=== PATIENT | female | born 1995 | race African-American/Black ===

== ENCOUNTER 2016-08-02 21:22 | Emergency (ER) | payer SELFPAY ==
[~2016-08-02 21:22] MED LIST: CYCL10TA2 PO; NAPR500T8 PO
[2016-08-02 21:33] VITALS: BP 128/84
[2016-08-02] MEDS ORDERED: ACET325T9 PO (22:23)
[2016-08-02] MEDS ORDERED: IBUP200T77 PO (22:23)
--- NOTE | 2016-08-02 22:23 | PHYS DOC ---
Past Medical History Past Medical History: No Pertinent History Past Surgical History: No Surgical History Alcohol Use: None Drug Use: None Adult General Chief Complaint Chief Complaint: Congestion HPI HPI 21-year-old female presenting to the emergency department with primarily headache. She does have a history of headaches and this headache is similar to previous. It was not sudden in onset. She describes it as a tight sensation across the forehead the wraps around. She denies any neck stiffness vision changes weakness or numbness. She denies fevers or chills. Review of systems is negative for abdominal pain. She does endorse is sharp chest pain that is been present for 4-5 days that is intermittent mild and without alleviating factors. Negative for meningismus. All other review of systems is negative unless otherwise noted in history of present illness. Review of Systems Review of Systems SEE ABOVE. Allergies Allergies Allergies Coded Allergies Type Severity Reaction Last Updated Verified No Known Drug Allergies 10/07/15 No Physical Exam Physical Exam Constitutional: Well developed, well nourished, no acute distress, non-toxic appearance. [] HENT: Normocephalic, atraumatic, bilateral external ears normal, oropharynx moist, no oral exudates, nose normal. Negative Kernig sign. Negative Brudzinski sign. Eyes: PERRLA, EOMI, conjunctiva normal, no discharge. [] Neck: Normal range of motion, no tenderness, supple, no stridor. [] Cardiovascular:Heart rate regular rhythm, no murmur [] Lungs & Thorax: Bilateral breath sounds clear to auscultation [] Abdomen: Bowel sounds normal, soft, no tenderness, no masses, no pulsatile masses. [] Skin: Warm, dry, no erythema, no rash. [] Back: No tenderness, no CVA tenderness. [] Extremities: No tenderness, no cyanosis, no clubbing, ROM intact, no edema. [] Neurologic: Alert and oriented X 3, normal motor function, normal sensory function, no focal deficits noted. [] Psychologic: Affect normal, judgement normal, mood normal. [] Current Patient Data Vital Signs Vital Signs Date Time Temp Pulse Resp B/P Pulse Ox O2 Delivery O2 Flow Rate FiO2 08/02/16 21:33 98.6 89 16 99 Room Air 98.[address] segments congruent. Sinus rhythm. Radiology/Procedures Radiology/Procedures []Chest x-ray reviewed by myself shows no obvious infiltrate or pneumothorax present. No obvious acute cardiopulmonary process present. Course & Med Decision Making Course & Med Decision Making Pertinent Labs and Imaging studies reviewed. (See chart for details) [] 21-year-old female presenting to the emergency department today with headache. Vital signs unremarkable. Physical exam shows no evidence of meningeal signs. Patient is well-appearing in the examination room and afebrile. I provided the patient with ibuprofen and acetaminophen for pain control the patient is to follow-up with her primary care physician over the next 2-3 days for her symptoms. Dragon Disclaimer Dragon Disclaimer This electronic medical record was generated, in whole or in part, using a voice recognition dictation system. Departure Departure Impression: Primary Impression: Headache Disposition: HOME, SELF-CARE Condition: STABLE Referrals: NO PCP (PCP) PRITI GONZALEZ MD Patient Instructions: General Headache Without Cause Additional Instructions: Thank you for allowing us to participate in your care today. Followup with your primary care physician in 3 days if your symptoms do not improve. If you do not have a primary care provider you can ask for a list of our primary care providers. Return to the emergency department you have any new or concerning findings. This should be evaluated by the primary care physician and any necessary consulting services for continued management within a few days after discharge. Return to emergency room if you have any new or concerning symptoms including but not limited to fever, chills, nausea, vomiting, intractable pain, any new rashes, chest pain, shortness of air, uncontrolled bleeding, difficulty breathing, and/or vision loss. Scripts Ibuprofen 200 Mg [id number] Mg PO PRN Q6HRS PRN PAIN #30 TAB Prov:ELIUD KHAN MD 08/02/16 Acetaminophen (Tylenol)325 Mg [id number] Mg PO PRN Q8HRS PRN PAIN #20 Prov:ELIUD KHAN MD 08/02/16 Problem Qualifiers Primary Impression: Headache Headache type: unspecified Headache chronicity pattern: unspecified pattern Intractability: not intractable Qualified Code: R51 - Headache ELIUD KHAN MD Aug 02, 2016 22:23
--- NOTE | 2016-08-03 06:39 | EKG ---
[facility] [address] [place] [address] Test Date: 2016-08-02 Test Time: 21:50:45 Pat Name: KELSEY BARRAGAN Department: Room: Gender: F Site Superintendent: : 1995 Requested By: ELIUD KHAN Order Number: [id number] Reading MD: Wendy Stoner Measurements Intervals [place] Rate: 79 P: DE: QRS: 74 QRSD: 70 T: 46 QT: 332 QTc: 382 Interpretive Statements SINUS RHYTHM, NORMAL ECG RI6.01 No previous ECG available for comparison Electronically Signed On 08-05-2016 17:12:42 CDT by Wendy Stoner
--- NOTE | 2016-08-03 07:41 | RAD ---
Indication chest pain. Chronic. PA and lateral views of the chest were obtained. No prior imaging is available. The heart and pulmonary vessels appear normal. The lungs are clear. Moderate scoliosis is noted. IMPRESSION: No acute or focal process seen in the chest. Moderate scoliosis
== END 2016-08-02 22:40 | disposition home or self-care (01) ==
LOC: ER 21:22
DX: R51 Headache (principal); R07.89 Other chest pain
CPT/HCPCS: 71020; 93005; 99284-25

== ENCOUNTER 2017-01-08 10:42 | Emergency (ER) | payer SELFPAY ==
[~2017-01-08] VITALS: Ht 149.9 cm; Wt 59.4 kg
[~2017-01-08 10:42] MED LIST changes: +ACET325T9 PO; +IBUP200T77 PO
--- NOTE | 2017-01-08 11:17 | PHYS DOC ---
Past Medical History Past Medical History: No Pertinent History Past Surgical History: No Surgical History Alcohol Use: None Additional Information: last drank alcohol Saturday Drug Use: None Adult General Chief Complaint Chief Complaint: ABDOMINAL PAIN HPI HPI Patient is a 21 year old female presents the ED complaining of abdominal pain 6 days. States the pain started last Saturday. States the abdominal pain has continued, intermittent, cramping, rates 5 out of 10. Associated symptoms include diarrhea. Denies blood in stool, chest pain, shortness of breath, fever , dizziness, weakness, nausea/vomiting, headache or syncope. Review of Systems Review of Systems Constitutional: Denies fever or chills [] Eyes: Denies change in visual acuity, redness, or eye pain [] HENT: Denies nasal congestion or sore throat [] Respiratory: Denies cough or shortness of breath [] Cardiovascular: No additional information not addressed in HPI [] GI: Complains lanes of abdominal pain and diarrhea. Denies nausea, vomiting, bloody stools. [] : Denies dysuria or hematuria [] Musculoskeletal: Denies back pain or joint pain [] Integument: Denies rash or skin lesions [] Neurologic: Denies headache, focal weakness or sensory changes [] Endocrine: Denies polyuria or polydipsia [] Allergies Allergies Allergies Coded Allergies Type Severity Reaction Last Updated Verified No Known Drug Allergies 10/07/15 No Physical Exam Physical Exam Constitutional: Well developed, well nourished, no acute distress, non-toxic appearance. [] HENT: Normocephalic, atraumatic, bilateral external ears normal, oropharynx moist, no oral exudates, nose normal. [] Eyes: PERRLA, EOMI, conjunctiva normal, no discharge. [] Neck: Normal range of motion, no tenderness, supple, no stridor. [] Cardiovascular:Heart rate regular rhythm, no murmur [] Lungs & Thorax: Bilateral breath sounds clear to auscultation [] Abdomen: Bowel sounds normal, soft, no tenderness, no masses, no pulsatile masses. [] Skin: Warm, dry, no erythema, no rash. [] Back: No tenderness, no CVA tenderness. [] Extremities: No tenderness, no cyanosis, no clubbing, ROM intact, no edema. [] Neurologic: Alert and oriented X 3, normal motor function, normal sensory function, no focal deficits noted. [] Psychologic: Affect normal, judgement normal, mood normal. [] Current Patient Data Vital Signs Vital Signs Date Time Temp Pulse Resp B/P (MAP) Pulse Ox O2 Delivery O2 Flow Rate FiO2 01/08/17 12:45 82 16 122/98 (106) 100 Room Air 01/08/17 10:51 97.8 97.8 Lab Values Laboratory Tests Test 01/08/17 10:45 01/08/17 11:09 01/08/17 11:40 Urine Collection Type Unknown Urine Color Yellow Urine Clarity Clear Urine pH 7.0 Urine Specific [place] 1.025 Urine Protein Negative mg/dL (NEG-TRACE) Urine Glucose (UA) Negative mg/dL (NEG) Urine Ketones (Stick) Negative mg/dL (NEG) Urine Blood Negative (NEG) Urine Nitrite Negative (NEG) Urine Bilirubin Negative (NEG) Urine Urobilinogen Dipstick 1.0 mg/dL (0.2 mg/dL) Urine Leukocyte Esterase Negative (NEG) Urine RBC 0 /HPF (0-2) Urine WBC 0 /HPF (0-4) Urine Bacteria 0 /HPF (0-FEW) POC Urine HCG, Qualitative Hcg negative (Negative) White Blood Count 5.5 x10^3/uL (4.0-11.0) Red Blood Count 4.51 x10^6/uL (3.50-5.40) Hemoglobin 14.0 g/dL (12.0-15.5) Hematocrit 41.8 % (36.0-47.0) Mean Corpuscular Volume 93 fL (79-100) Mean Corpuscular Hemoglobin 31 pg (25-35) Mean Corpuscular Hemoglobin Concent 34 g/dL (31-37) Red Cell Distribution Width 12.8 % (11.5-14.5) Platelet Count 244 x10^3/uL (140-400) Sodium Level 142 mmol/L (136-145) Potassium Level 4.1 mmol/L (3.5-5.1) Chloride Level 106 mmol/L (98-107) Carbon Dioxide Level 28 mmol/L (21-32) Anion Gap 8 (6-14) Blood Urea Nitrogen 9 mg/dL (7-20) Creatinine 0.9 mg/dL (0.6-1.0) Estimated GFR (Cockcroft-Gault) 96.6 BUN/Creatinine Ratio 10 (6-20) Glucose Level 93 mg/dL (70-99) Calcium Level 9.2 mg/dL (8.5-10.1) Total Bilirubin 0.2 mg/dL (0.2-1.0) Aspartate Amino Transferase (AST) 14 U/L (15-37) L Alanine Aminotransferase (ALT) 24 U/L (14-59) Alkaline Phosphatase 93 U/L (46-116) Total Protein 7.8 g/dL (6.4-8.2) Albumin 4.2 g/dL (3.4-5.0) Albumin/Globulin Ratio 1.2 (1.0-1.7) Lipase 116 U/L (73-393) Laboratory Tests 01/08/17 11:40 Laboratory Tests 01/08/17 11:40 EKG EKG [] Radiology/Procedures Radiology/Procedures [] Course & Med Decision Making Course & Med Decision Making Pertinent Labs and Imaging studies reviewed. (See chart for details) []Discussed labs with patient. No imaging required at this time. Patients pain resolved. On reexamination, abdomen is soft nontender nondistended. No peritoneal signs. Discussed bland diet, symptomatic treatment and increasing fluid intake. Discussed follow-up with PCP in one to 2 days. Provided contact information/education. Discussed reasons to return to the ED. Patient understands and agrees with plan. Dragon Disclaimer Dragon Disclaimer This electronic medical record was generated, in whole or in part, using a voice recognition dictation system. Departure Departure Impression: Primary Impression: Diarrhea Referrals: NO PCP (PCP) PRITI VILLANUEVA MD Patient Instructions: Diarrhea MCKINLEY ANGLIN Jan 08, 2017 11:17
[2017-01-08 11:19] LABS: BILIRUBIN,URINE NEGATIVE (NEG); GLUCOSE,URINE NEGATIVE (NEG); NITRITE,URINE NEGATIVE (NEG); PROTEIN,URINE NEGATIVE (NEG-TRACE)
[2017-01-08 11:47] LABS: BACTERIA,URINE 0 /HPF (0-FEW); RBC,URINE 0 /HPF (0-2); WBC,URINE 0 /HPF (0-4)
[2017-01-08 11:55] LABS: HEMATOCRIT 41.8 % (36.0-47.0); RED BLOOD COUNT 4.51 x10^6/uL (3.50-5.40); RED CELL DISTRIBUTION WIDTH 12.8 % (11.5-14.5); WHITE BLOOD COUNT 5.5 x10^3/uL (4.0-11.0)
[2017-01-08 12:01] LABS: CALCIUM 9.2 mg/dL (8.5-10.1); CREATININE 0.9 mg/dL (0.6-1.0); GFR 96.6; POTASSIUM 4.1 mmol/L (3.5-5.1)
[2017-01-08 12:07] LABS: ALBUMIN 4.2 g/dL (3.4-5.0); ALBUMIN/GLOBULIN RATIO 1.2 (1.0-1.7); TOTAL BILIRUBIN 0.2 mg/dL (0.2-1.0); TOTAL PROTEIN 7.8 g/dL (6.4-8.2)
[2017-01-08 12:45] VITALS: BP 122/98
== END 2017-01-08 12:53 | disposition home or self-care (01) ==
LOC: ER 10:42
DX: R19.7 Diarrhea, unspecified (principal); R10.9 Unspecified abdominal pain
CPT/HCPCS: 36415; 80053; 81001; 81025; 83690; 85027; 99284

== ENCOUNTER 2017-04-05 07:46 | Emergency (ER) | payer SELFPAY ==
[~2017-04-05] VITALS: Ht 149.9 cm; Wt 64.4 kg
[2017-04-05 08:00] VITALS: BP 106/61
[2017-04-05] MEDS ORDERED: ACETAMINOPHEN 500 MG TABLET PO ONE (08:30)
[2017-04-05 08:45] LABS: OBC FLU VALID
--- NOTE | 2017-04-05 08:51 | PHYS DOC ---
Past Medical History Past Medical History: No Pertinent History Past Surgical History: No Surgical History Alcohol Use: Rarely Drug Use: None Adult General Chief Complaint Chief Complaint: SORE THROAT HPI HPI Patient is a 21 year old female who presents with fever body aches and sore throat times one week. The patient is worried that she has strep throat as her symptoms do not seem to be improving. She has not taken ibuprofen or Tylenol for her fever. She denies ear pain, headache or shortness of breath. She has had periods of intermittent nausea. Review of Systems Review of Systems Constitutional: Denies fever or chills [] Eyes: Denies change in visual acuity, redness, or eye pain [] HENT: See history of present illness Respiratory: See history of present illness Cardiovascular: No additional information not addressed in HPI [] GI: See history of present illness : Denies dysuria or hematuria [] Musculoskeletal: Denies back pain or joint pain [] Integument: Denies rash or skin lesions [] Neurologic: Denies headache, focal weakness or sensory changes [] Endocrine: Denies polyuria or polydipsia [] All other systems were reviewed and found to be within normal limits, except as documented in this note. Current Medications Current Medications Current Medications Medications (Trade) Dose Ordered Sig/Melissa Start Time Stop Time Status Last Admin Dose Admin Acetaminophen (Tylenol) 1,000 mg 1X ONCE 04/05/17 08:30 04/05/17 08:31 DC Allergies Allergies Allergies Coded Allergies Type Severity Reaction Last Updated Verified No Known Drug Allergies 10/07/15 No Physical Exam Physical Exam Constitutional: Well developed, well nourished, no acute distress, non-toxic appearance. [] HENT: Normocephalic, atraumatic, bilateral external ears normal, oropharynx moist and erythematous, no oral exudates, nose normal. [] Eyes: PERRLA, EOMI, conjunctiva normal, no discharge. [] Neck: Normal range of motion, no tenderness, supple, no stridor. [] Cardiovascular:Heart rate regular rhythm, no murmur [] Lungs & Thorax: Bilateral breath sounds clear to auscultation [] Abdomen: Bowel sounds normal, soft, no tenderness, no masses, no pulsatile masses. [] Skin: Warm, dry, no erythema, no rash. [] Back: No tenderness, no CVA tenderness. [] Extremities: No tenderness, no cyanosis, no clubbing, ROM intact, no edema. [] Neurologic: Alert and oriented X 3, normal motor function, normal sensory function, no focal deficits noted. [] Psychologic: Affect normal, judgement normal, mood normal. [] Current Patient Data Lab Values Laboratory Tests Test 04/05/17 08:10 Influenza Type A Antigen Negative (NEGATIVE) Influenza Type B Antigen Positive (NEGATIVE) EKG EKG [] Radiology/Procedures Radiology/Procedures [] Course & Med Decision Making Course & Med Decision Making Pertinent Labs and Imaging studies reviewed. (See chart for details) [] Dragon Disclaimer Dragon Disclaimer This electronic medical record was generated, in whole or in part, using a voice recognition dictation system. Departure Departure Referrals: NO PCP (PCP) FE ALEMAN APRN Apr 05, 2017 08:51
[2017-04-05] MEDS ORDERED: AMOX875T PO (08:59)
[2017-04-05 12:24] LABS: NEGATIVE OBC STREP NEG; POSITIVE OBC STREP POS
== END 2017-04-05 09:14 | disposition home or self-care (01) ==
LOC: ER 07:46
DX: J10.1 Influenza due to other identified influenza virus with other respiratory manifestations (principal); J02.0 Streptococcal pharyngitis
CPT/HCPCS: 87804; 87880; 99284

== ENCOUNTER 2017-06-19 12:54 | Emergency (ER) | payer SELFPAY | END 2017-06-19 14:03 | disposition home or self-care (01) | LOC: ER 12:54 | DX: S63.657A Sprain of metacarpophalangeal joint of left little finger, initial encounter (principal); S63.637A Sprain of interphalangeal joint of left little finger, initial encounter; X58.XXXA Exposure to other specified factors, initial encounter; Y93.89 Activity, other specified; Y99.8 Other external cause status; Y92.89 Other specified places as the place of occurrence of the external cause | CPT/HCPCS: 29130; 73140; 99284 ==

== ENCOUNTER 2017-07-23 10:43 | Emergency (ER) | payer SELFPAY ==
[2017-07-23 12:13] LABS: BILIRUBIN,URINE NEGATIVE (NEG); CLARITY,URINE CLEAR; COLOR,URINE YELLOW; GLUCOSE,URINE NEGATIVE (NEG); NITRITE,URINE NEGATIVE (NEG); PH,URINE 5.5; PROTEIN,URINE NEGATIVE (NEG-TRACE)
[2017-07-23 12:31] LABS: BACTERIA,URINE FEW /HPF (0-FEW); RBC,URINE 0 /HPF (0-2); SQUAMOUS EPITHELIAL CELL,UR MOD /LPF
== END 2017-07-23 13:26 | disposition home or self-care (01) ==
LOC: ER 10:43
DX: M54.6 Pain in thoracic spine (principal); M41.9 Scoliosis, unspecified; G89.29 Other chronic pain
CPT/HCPCS: 81001; 87491; 87591; 99284

== ENCOUNTER 2017-08-09 14:30 | Emergency (ER) | payer SELFPAY | END 2017-08-09 15:17 | disposition home or self-care (01) | LOC: ER 15:17 | DX: J02.8 Acute pharyngitis due to other specified organisms (principal); B97.89 Other viral agents as the cause of diseases classified elsewhere | CPT/HCPCS: 99283 ==

== ENCOUNTER 2017-09-28 12:17 | Emergency (ER) | payer SELFPAY | END 2017-09-28 13:10 | disposition home or self-care (01) | LOC: ER 12:17 | DX: J02.8 Acute pharyngitis due to other specified organisms (principal) | CPT/HCPCS: 99283 ==

== ENCOUNTER 2018-08-16 07:04 | Emergency (ER) | payer SELFPAY ==
[~2018-08-16] VITALS: Ht 149.9 cm; Wt 61.2 kg
[~2018-08-16 07:04] MED LIST changes: +AMOX875T PO; +IBUP-1007 PO; +PRED20TA PO; +PRED50TA PO
[2018-08-16 07:24] LABS: BILIRUBIN,URINE NEGATIVE (NEG); CLARITY,URINE CLEAR; COLOR,URINE YELLOW; NITRITE,URINE NEGATIVE (NEG); PH,URINE 5.5; PROTEIN,URINE NEGATIVE (NEG-TRACE)
[2018-08-16] MEDS ORDERED: ONDANSETRON ODT 4 MG TAB.RAPDIS. PO ONE (07:30)
--- NOTE | 2018-08-16 07:35 | PHYS DOC ---
Past Medical History Past Medical History: No Pertinent History Additional Past Medical Histor: scoliosis,STREP Past Surgical History: No Surgical History Additional Information: Denies smoking Alcohol Use: None Drug Use: None Adult General Chief Complaint Chief Complaint: NAUSEA/[facility]ITING[facility] HPI Patient is a 23 year old female who presents with complaining of nausea and vomiting. Patient complaining of 3 episodes of nonbloody vomiting since 4 AM today with cramping central abdominal pain during episodes of vomiting. Patient denies diarrhea, urinary symptoms, sick contact, fever and chills . Patient states she has seafood yesterday and had a normal bowel movement last night. Patient states she had to leave her job because of vomiting and dizziness and is very concern for not losing her new job. Review of Systems Review of Systems Constitutional: Denies fever or chills [] Eyes: Denies change in visual acuity, redness, or eye pain [] HENT: Denies nasal congestion or sore throat [] Respiratory: Denies cough or shortness of breath [] Cardiovascular: No additional information not addressed in HPI [] GI: Reports abdominal pain, nausea, vomiting, denies bloody stools or diarrhea [] : Denies dysuria or hematuria [] Musculoskeletal: Denies back pain or joint pain [] Integument: Denies rash or skin lesions [] Neurologic: Denies headache, focal weakness or sensory changes [] Endocrine: Denies polyuria or polydipsia [] All other systems were reviewed and found to be within normal limits, except as documented in this note. Current Medications Current Medications Current Medications Medications (Trade) Dose Ordered Sig/Melissa Start Time Stop Time Status Last Admin Dose Admin Ondansetron HCl (Zofran Odt) 4 mg 1X ONCE 08/16/18 07:30 08/16/18 07:32 DC 08/16/18 07:35 4 MG Allergies Allergies Allergies Coded Allergies Type Severity Reaction Last Updated Verified No Known Drug Allergies 10/07/15 No Physical Exam Physical Exam Constitutional: Well developed, well nourished, mild distress, non-toxic appearance. [] HENT: Normocephalic, atraumatic, oropharynx moist. Eyes: PERRLA, EOMI, conjunctiva normal, no discharge. [] Neck: Normal range of motion, no tenderness, supple, no stridor. [] Cardiovascular:Heart rate regular rhythm, no murmur [] Lungs & Thorax: Bilateral breath sounds clear to auscultation [] Abdomen: Bowel sounds normal, soft, no tenderness, no masses, no pulsatile masses. [] Skin: Warm, dry, no erythema, no rash. [] Back: No tenderness, no CVA tenderness. [] Extremities: No tenderness, no cyanosis, no clubbing, ROM intact, no edema. [] Neurologic: Alert and oriented X 3, normal motor function, normal sensory function, no focal deficits noted. [] Psychologic: Affect normal, judgement normal, mood normal. [] Current Patient Data Vital Signs Vital Signs Date Time Temp Pulse Resp B/P (MAP) Pulse Ox O2 Delivery O2 Flow Rate FiO2 08/16/18 08:47 95 14 115/78 (90) 95 Room Air 08/16/18 07:09 97.5 97.5 Lab Values Laboratory Tests Test 08/16/18 07:16 08/16/18 07:17 Urine Collection Type Void Urine Color Yellow Urine Clarity Clear Urine pH 5.5 Urine Specific [place] 1.025 Urine Protein Negative mg/dL (NEG-TRACE) Urine Glucose (UA) Negative mg/dL (NEG) Urine Ketones (Stick) Negative mg/dL (NEG) Urine Blood Negative (NEG) Urine Nitrite Negative (NEG) Urine Bilirubin Negative (NEG) Urine Urobilinogen Dipstick 1.0 mg/dL (0.2 mg/dL) Urine Leukocyte Esterase Negative (NEG) Urine RBC 1-2 /HPF (0-2) Urine WBC 5-10 /HPF (0-4) Urine Squamous Epithelial Cells Many /LPF Urine Bacteria Many /HPF (0-FEW) Urine Mucus Marked /LPF POC Urine HCG, Qualitative Hcg negative (Negative) EKG EKG [] Radiology/Procedures Radiology/Procedures [] Course & Med Decision Making Course & Med Decision Making Pertinent Labs reviewed. (See chart for details) Evaluation of patient in ER showed 24-year-old female patient with complaining of 3 episodes of vomiting this morning without diarrhea or urinary symptom. Patient had unremarkable physical exam and labs except for mild UTI. Patient had Zofran sublingual and felt better. Dragon Disclaimer Dragon Disclaimer This electronic medical record was generated, in whole or in part, using a voice recognition dictation system. Departure Departure Impression: Primary Impression: Acute gastritis Additional Impression: Urinary tract infection Disposition: 01 HOME, SELF-CARE (at 0812) Condition: IMPROVED Referrals: NO PCP (PCP) Patient Instructions: Nausea and Vomiting, Urinary Tract Infection Additional Instructions: Drink plenty of liquids Follow-up with your primary care physician in 3-5 days Return to ER if not getting better Do not eat solid foods today Scripts Ciprofloxacin Hcl (CIPRO) 250 Mg Tablet 1 TAB PO BID for infection, #6 TAB Prov: MARGARITA TAMEZ MD 08/16/18 Promethazine Hcl (PROMETHAZINE HCL) 25 Mg Tablet 1 TAB PO PRN Q6HRS for nausea and vomiting, #12 TAB Prov: MARGARITA TAMEZ MD 08/16/18 Problem Qualifiers Primary Impression: Acute gastritis Gastritis type: unspecified gastritis Gastritis bleeding: without bleeding Qualified Codes: K29.00 - Acute gastritis without bleeding Additional Impression: Urinary tract infection Urinary tract infection type: acute cystitis Hematuria presence: without hematuria Qualified Codes: N30.00 - Acute cystitis without hematuria MARGARITA TAMEZ MD August 16, 2018 07:35
[2018-08-16 07:36] LABS: SQUAMOUS EPITHELIAL CELL,UR MANY /LPF
[2018-08-16 07:37] LABS: BACTERIA,URINE MANY /HPF (0-FEW)
[2018-08-16] MEDS ORDERED: CIPR250T30 PO (08:16)
[2018-08-16] MEDS ORDERED: PROM25TA10 PO (08:16)
[2018-08-16 08:47] VITALS: BP 115/78
== END 2018-08-16 08:50 | disposition home or self-care (01) ==
LOC: ER 07:04
DX: K29.00 Acute gastritis without bleeding (principal); N30.00 Acute cystitis without hematuria; R42 Dizziness and giddiness
CPT/HCPCS: 81001; 81025; 87086; 99284; Q0162

== ENCOUNTER 2019-01-08 14:03 | Emergency (ER) | payer SELFPAY ==
[~2019-01-08] VITALS: Ht 149.9 cm; Wt 61.2 kg
[~2019-01-08 14:03] MED LIST changes: +CIPR250T30 PO; +PROM25TA10 PO
[2019-01-08 15:26] VITALS: BP 129/58
[2019-01-08] MEDS ORDERED: HYDROcodone/APAP 5/325MG 1 TAB TABLET PO ONE (16:15)
[2019-01-08] MEDS ORDERED: ORPHENADRINE CITRATE 60 MG/2 ML VIAL. IM ONE (16:15)
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
[2019-01-08] MEDS ORDERED: ORPH100T PO (17:41)
[2019-01-08] MEDS ORDERED: HYDR-3164 PO (17:41)
== END 2019-01-08 17:46 | disposition home or self-care (01) ==
LOC: ER 14:03
DX: M54.6 Pain in thoracic spine (principal); G89.11 Acute pain due to trauma; M54.5 Low back pain; M54.2 Cervicalgia; R51 Headache; M79.661 Pain in right lower leg; V43.52XA Car driver injured in collision with other type car in traffic accident, initial encounter; Y92.488 Other paved roadways as the place of occurrence of the external cause; Y93.89 Activity, other specified; Y99.8 Other external cause status
CPT/HCPCS: 70450; 72072; 72100; 72125; 81025; 96372; 99284; J2360

== ENCOUNTER 2019-11-02 15:06 | Emergency (ER) | payer SELFPAY ==
[~2019-11-02] VITALS: Ht 149.9 cm; Wt 65.0 kg
[~2019-11-02 15:06] MED LIST changes: +HYDR-3164 PO; +ORPH100T PO
[2019-11-02 16:02] LABS: BILIRUBIN,URINE NEGATIVE (NEG); CLARITY,URINE CLEAR; COLOR,URINE YELLOW; NITRITE,URINE NEGATIVE (NEG); PROTEIN,URINE NEGATIVE (NEG-TRACE)
[2019-11-02 16:15] LABS: BASO % 1 % (0-3); EOS % 1 % (0-3); HEMATOCRIT 38.8 % (36.0-47.0); HEMOGLOBIN 13.5 g/dL (12.0-15.5); LYMPH # 2.5 x10^3/uL (1.0-4.8); LYMPH % 46 % (24-48); MEAN CORPUSCULAR HEMOGLOBIN 32 pg (25-35); MEAN CORPUSCULAR HGB CONC 35 g/dL (31-37); MEAN CORPUSCULAR VOLUME 93 fL (79-100); MONO # 0.4 x10^3/uL (0.0-1.1); MONO % 8 % (0-9); NEUT # 2.5 x10^3/uL (1.8-7.7); NEUT % 46 % (31-73); PLATELET COUNT 290 x10^3/uL (140-400); RED BLOOD COUNT 4.19 x10^6/uL (3.50-5.40); RED CELL DISTRIBUTION WIDTH 12.8 % (11.5-14.5); WHITE BLOOD COUNT 5.5 x10^3/uL (4.0-11.0)
[2019-11-02 16:21] LABS: SQUAMOUS EPITHELIAL CELL,UR MOD /LPF
[2019-11-02 16:22] LABS: AMORPHOUS SEDIMENT,UR PRESENT /HPF; BACTERIA,URINE FEW /HPF (0-FEW); RBC,URINE 0 /HPF (0-2); WBC,URINE 0 /HPF (0-4)
[2019-11-02] MEDS ORDERED: IV NORMAL SALINE 1000ML BAG 1,000 ML IV ONE (16:30)
[2019-11-02 16:40] LABS: CALCIUM 8.7 mg/dL (8.5-10.1); GFR 83.1; POTASSIUM 4.5 mmol/L (3.5-5.1)
[2019-11-02 16:44] LABS: ALBUMIN/GLOBULIN RATIO 1.1 (1.0-1.7); MAGNESIUM 2.2 mg/dL (1.8-2.4); TOTAL BILIRUBIN 0.3 mg/dL (0.2-1.0); TOTAL PROTEIN 7.7 g/dL (6.4-8.2)
[2019-11-02 16:52] VITALS: BP 135/96
--- NOTE | 2019-11-02 16:55 | PHYS DOC ---
Past Medical History Past Medical History: No Pertinent History Additional Past Medical Histor: scoliosis,STREP Past Surgical History: No Surgical History Smoking Status: Never Smoker Alcohol Use: None Drug Use: None General Adult EDM: Chief Complaint: GI PROBLEM HPI: HPI: Patient is a 24 year old AA female who presents to the emergency department with complaints of nausea and loose stools for the last 3 weeks. Patient states that every time she eats something within an hour her abdomen starts to cramp and then she has to have a bowel movement. She denies any blood in her stool. She denies any fever, cough, shortness of breath, chest pain, vomiting, dysuria, hematuria, or increased urinary frequency. Patient reports that her left low back is also been hurting. She reports a history of scoliosis. She currently rates her pain a 7 out of 10 on the pain scale, she denies any alleviating or exacerbating factors. She reports her last menstrual cycle was 10 days ago. Review of Systems: Review of Systems: Complete ROS is negative unless otherwise stated in the HPI. Heart Score: Risk Factors: Risk Factors: DM, Current or recent (<one month) smoker, HTN, HLP, family history of CAD, obesity. Risk Scores: Score 0 - 3: 2.5% MACE over next 6 weeks - Discharge Home Score 4 - 6: 20.3% MACE over next 6 weeks - Admit for Clinical Observation Score 7 - 10: 72.7% MACE over next 6 weeks - Early Invasive Strategies Current Medications: Current Medications Medications (Trade) Dose Ordered Sig/Melissa Start Time Stop Time Status Last Admin Dose Admin Sodium Chloride 1,000 ml @ 1,000 mls/hr 1X ONCE 11/02/19 16:30 11/02/19 17:29 11/02/19 16:28 1,000 MLS/HR Allergies: Allergies: Allergies Coded Allergies Type Severity Reaction Last Updated Verified No Known Drug Allergies 10/07/15 No Physical Exam: PE: Constitutional: Well developed, well nourished, no acute distress, non-toxic appearance. [] HENT: Normocephalic, atraumatic, bilateral external ears normal, oropharynx moist, no oral exudates, nose normal. [] Eyes: PERRLA, EOMI, conjunctiva normal, no discharge. [] Neck: Normal range of motion, no stridor. [] Cardiovascular:Heart rate regular rhythm Lungs & Thorax: Bilateral breath sounds clear to auscultation, Respirations even and unlabored, no retractions, no respiratory distress [] Abdomen: Bowel sounds normal, soft, no tenderness, no masses, no pulsatile masses. [] Skin: Warm, dry, no erythema, no rash. [] Back: No bony tenderness; left lumbar paraspinal tenderness to palpation Extremities: No cyanosis, ROM intact, no edema. [] Neurologic: Alert and oriented X 3, no focal deficits noted. [] Psychologic: Affect normal, judgement normal, mood normal. [] Current Patient Data: Labs: Laboratory Tests Test 11/02/19 15:20 11/02/19 15:30 11/02/19 16:07 Urine Collection Type Unknown Urine Color Yellow Urine Clarity Clear Urine pH 7.0 (<5.0-8.0) Urine Specific [place] 1.025 (1.000-1.030) Urine Protein Negative mg/dL (NEG-TRACE) Urine Glucose (UA) Negative mg/dL (NEG) Urine Ketones (Stick) Negative mg/dL (NEG) Urine Blood Negative (NEG) Urine Nitrite Negative (NEG) Urine Bilirubin Negative (NEG) Urine Urobilinogen Dipstick 1.0 mg/dL (0.2 mg/dL) Urine Leukocyte Esterase Negative (NEG) Urine RBC 0 /HPF (0-2) Urine WBC 0 /HPF (0-4) Urine Squamous Epithelial Cells Mod /LPF Urine Amorphous Sediment Present /HPF Urine Bacteria Few /HPF (0-FEW) Urine Mucus Mod /LPF POC Urine HCG, Qualitative Hcg negative (Negative) White Blood Count 5.5 x10^3/uL (4.0-11.0) Red Blood Count 4.19 x10^6/uL (3.50-5.40) Hemoglobin 13.5 g/dL (12.0-15.5) Hematocrit 38.8 % (36.0-47.0) Mean Corpuscular Volume 93 fL (79-100) Mean Corpuscular Hemoglobin 32 pg (25-35) Mean Corpuscular Hemoglobin Concent 35 g/dL (31-37) Red Cell Distribution Width 12.8 % (11.5-14.5) Platelet Count 290 x10^3/uL (140-400) Neutrophils (%) (Auto) 46 % (31-73) Lymphocytes (%) (Auto) 46 % (24-48) Monocytes (%) (Auto) 8 % (0-9) Eosinophils (%) (Auto) 1 % (0-3) Basophils (%) (Auto) 1 % (0-3) Neutrophils # (Auto) 2.5 x10^3/uL (1.8-7.7) Lymphocytes # (Auto) 2.5 x10^3/uL (1.0-4.8) Monocytes # (Auto) 0.4 x10^3/uL (0.0-1.1) Eosinophils # (Auto) 0.0 x10^3/uL (0.0-0.7) Basophils # (Auto) 0.0 x10^3/uL (0.0-0.2) Sodium Level 136 mmol/L (136-145) Potassium Level 4.5 mmol/L (3.5-5.1) Chloride Level 103 mmol/L (98-107) Carbon Dioxide Level 26 mmol/L (21-32) Anion Gap 7 (6-14) Blood Urea Nitrogen 16 mg/dL (7-20) Creatinine 1.0 mg/dL (0.6-1.0) Estimated GFR (Cockcroft-Gault) 83.1 BUN/Creatinine Ratio 16 (6-20) Glucose Level 82 mg/dL (70-99) Calcium Level 8.7 mg/dL (8.5-10.1) Magnesium Level 2.2 mg/dL (1.8-2.4) Total Bilirubin 0.3 mg/dL (0.2-1.0) Aspartate Amino Transferase (AST) 17 U/L (15-37) Alanine Aminotransferase (ALT) 21 U/L (14-59) Alkaline Phosphatase 60 U/L (46-116) Total Protein 7.7 g/dL (6.4-8.2) Albumin 4.0 g/dL (3.4-5.0) Albumin/Globulin Ratio 1.1 (1.0-1.7) Lipase 83 U/L (73-393) Laboratory Tests 11/02/19 16:07 Laboratory Tests 11/02/19 16:07 Vital Signs: Vital Signs Date Time Temp Pulse Resp B/P (MAP) Pulse Ox O2 Delivery O2 Flow Rate FiO2 11/02/19 15:14 98.3 75 18 141/95 (110) 99 Room Air 98.3 EKG: EKG: [] Radiology/Procedures: Radiology/Procedures: [] Course & Med Decision Making: Course & Med Decision Making Pertinent Labs and Imaging studies reviewed. (See chart for details) 24-year-old female presents emergency department with complaints of nausea and loose stools for 3 weeks. Symptoms are consistent with irritable bowel syndrome, CBC, CMP, and UA are unremarkable. There was left lumbar paraspinal tenderness to palpation with no concerns of sciatica. Will prescribe patient Flexeril and naproxen for relief of left low back pain. Patient was given a liter normal saline in the emergency department, she was encouraged to follow-up with her primary care doctor for further evaluation and treatment of IBS and chronic back pain. Patient verbalized an understanding of home care, medications, follow-up, and return to ED instructions and was in agreement with the plan of care. [] Dragon Disclaimer: Dragon Disclaimer: This electronic medical record was generated, in whole or in part, using a voice recognition dictation system. Departure Departure Impression: Primary Impression: IBS (irritable bowel syndrome) Qualified Codes: K58.0 - Irritable bowel syndrome with diarrhea Additional Impression: Low back pain Qualified Codes: M54.5 - Low back pain Disposition: 01 HOME, SELF-CARE Condition: STABLE Referrals: NO PCP (PCP) Patient Instructions: Back Pain, Adult, [id number], Diet and Irritable Bowel Syndrome, Irritable Bowel Syndrome Additional Instructions: Fill the prescriptions and use them as directed, activity as tolerated. Follow the diet instructions provided about IBS. Follow-up with your primary care doctor for further evaluation and treatment of your irritable bowel and chronic back pain. Return to the ER if symptoms worsen. Scripts Naproxen (NAPROXEN) 500 Mg Tablet 1 TAB PO BID PRN for PAIN for 10 Days, #20 TAB 0 Refills Prov: KELSIE SNEED APRN 11/02/19 Cyclobenzaprine Hcl (CYCLOBENZAPRINE HCL) 10 Mg Tablet 1 TAB PO TID PRN for PAIN for 10 Days, #30 TAB 0 Refills Prov: KELSIE SNEED APRN 11/02/19 Justicifation of Admission Dx: Justifications for Admission: Justification of Admission Dx: N/A KELSIE SNEED APRN Nov 02, 2019 16:55
[2019-11-02] MEDS ORDERED: CYCL10TA2 PO (17:09)
[2019-11-02] MEDS ORDERED: NAPR-514 PO (17:09)
== END 2019-11-02 17:30 | disposition home or self-care (01) ==
LOC: ER 15:06
DX: K58.0 Irritable bowel syndrome with diarrhea (principal); R19.7 Diarrhea, unspecified; M54.5 Low back pain; G89.29 Other chronic pain; R11.0 Nausea
CPT/HCPCS: 36415; 80053; 81001; 81025; 83690; 83735; 85025; 96360; 99283; J7030